=== PATIENT | female | born 1970 | race Two or more races ===

== ENCOUNTER 2017-09-16 00:22 | Emergency (ER) | payer OTHER ==
[~2017-09-16] VITALS: Ht 165.1 cm; Wt 72.6 kg
[2017-09-16 00:30] VITALS: BP 116/66
--- NOTE | 2017-09-16 00:40 | NUR ---
RADIOLOGY AT [facility]
--- NOTE | 2017-09-16 01:13 | NUR ---
Patient discharged UNDER [employer] in stable condition. Written and verbal after care instructions given. Patient verbalizes understanding of instruction. ambulatory with a steady gait.
== END 2017-09-16 01:15 ==
LOC: ER 00:27
DX: S63.591A Other specified sprain of right wrist, initial encounter (principal); I10 Essential (primary) hypertension; M19.90 Unspecified osteoarthritis, unspecified site; F32.9 Major depressive disorder, single episode, unspecified; Z88.0 Allergy status to penicillin; W23.0XXA Caught, crushed, jammed, or pinched between moving objects, initial encounter; Y93.89 Activity, other specified; Y92.89 Other specified places as the place of occurrence of the external cause; Y99.8 Other external cause status
CPT/HCPCS: 29125; 73110; 82962; 99284; A4606; Z7610

== ENCOUNTER 2018-06-14 02:55 | Emergency (ER) | payer OTHER ==
[~2018-06-14] VITALS: Ht 165.1 cm; Wt 95.3 kg
[2018-06-14] MEDS ORDERED: SULFACETAMIDE 10% OPHTH 15 ML BOTTLE ONE (03:08)
[2018-06-14] MEDS ORDERED: SULFACETAMIDE 10% OPHTH 15 ML BOTTLE OP ONE (03:30)
--- NOTE | 2018-06-14 03:36 | NUR ---
eye drops administered by dr wood, pt cleared for booking.
[2018-06-14 03:38] VITALS: BP 135/74
== END 2018-06-14 03:49 ==
LOC: ER 02:58
DX: H10.32 Unspecified acute conjunctivitis, left eye (principal); I10 Essential (primary) hypertension; F32.9 Major depressive disorder, single episode, unspecified; M19.90 Unspecified osteoarthritis, unspecified site; Z88.0 Allergy status to penicillin
CPT/HCPCS: 99283; A4606